=== PATIENT | female | born 1990 | race Hispanic/Latino ===

== ENCOUNTER 2019-06-27 22:33 | Emergency (ER) | payer SELFPAY ==
[2019-06-27 23:09] LABS: #Basophils 0.1 thou/uL (0.0-0.2); #Eosinphils 0.1 thou/uL (0.0-0.7); #Monocytes 0.8 thou/uL (0.11-0.59); #Neutrophils 5.7 thou/uL (1.40-6.50); %Basophils 0.8 % (0.0-1.0); %Eosinophils 1.2 % (0.0-10.0); %Lymphocytes 22.7 % (21.0-51.0); %Monocytes 9.2 % (0.0-10.0); %Neutrophils 66.2 % (42.0-75.0); Hemoglobin 12.4 g/dL (12.0-16.0); Mean Corpuscular HGB CONC 33.6 g/dL (32.0-36.0); Mean Corpuscular Hemoglobin 27.9 pg (27.0-31.0); Mean Corpuscular Volume 83.2 fL (78.0-98.0); Mean Platelet Volume 11.7 fL (7.4-10.4); Platelet Count 138 thou/uL (130-400); Red Blood Cell (RBC) Count 4.44 mill/uL (4.20-5.40); White Blood Cell (WBC) Count 8.7 thou/uL (4.8-10.8)
--- NOTE | 2019-06-28 00:15 | ULT ---
ULTRASOUND PELVIC ULTRASOUND TRANSVAGINAL DOPPLER DUPLEX: DATE: 06/27/2019 11:45 PM HISTORY: 29-year-old female with first trimester vaginal bleeding TECHNIQUE: Transabdominal transducer and endovaginal transducer used to visualize intrapelvic contents with yeboah scale, color-flow, and spectral analysis. FINDINGS: At the fundus of the uterus, there is a elongated, slightly misshapen intrauterine gestational sac. pole has slightly heterogeneous echogenicity, with crown-rump length of 2.5 cm, corresponding t o 9 weeks 2 days gestational age. heart rate 175 bpm Small amount of free fluid in the cul-de-sac. Blood flow demonstrated in both ovaries by Doppler. IMPRESSION: 1. Live first trimester intrauterine gestation estimated to be 9 weeks 2 days gestational age. 2. Gestational sac is slightly misshapen. 3. Consider follow-up.
[2019-06-28 00:33] LABS: Bacteria/HPF 1+ HPF (None Seen); Bilirubin Negative (Negative); Blood, Urine 2+ (Negative); Clarity Clear (Clear); Glucose, Urine (Dipstick) Normal (Negative); Leukocyte Negative Leu/uL (Negative); Nitrite Negative (Negative); Protein, Urine (Dipstick) Negative (Neg-Trace); RBC/HPF 0-3 HPF (0-3); Squamous Epithelial 0-3 HPF (0-3); Urobilinogen Normal mg/dL (Less than 2); WBC/HPF 0-3 HPF (0-3)
== END 2019-06-28 01:01 | disposition home or self-care (01) ==
LOC: ERS 22:33
DX: O20.9 Hemorrhage in early pregnancy, unspecified (principal); Z3A.09 9 weeks gestation of pregnancy
CPT/HCPCS: 36415; 76856; 81003; 81015; 84702; 85025; 86900; 86901

== ENCOUNTER → 2020-01-16 | Day surgery (SDC) | payer OTHER ==
[~2020-01-16] MED LIST: Azithromycin 500 MG VIAL ONE; Lactated Ringer's 1,000 ML IV SCH; Morphine 4 MG/ML VIAL IM SCH; Morphine 4 MG/ML VIAL SLOW IVP PRN; Promethazine HCl 12.5 MG in Sodium Chloride 0.9% 50 ML IVPB SCH; hydrALAZINE 20 MG/ML VIAL SLOW IVP PRN
[2020-01-16 01:35] VITALS: BMI 33.9
[2020-01-16 01:48] VITALS: BP 118/67
--- NOTE | 2020-01-16 02:19 | PDOC.FPROB ---
FMR OB H&P: HPI - History of Present Illness Chief Complaint: contractions History of Present Illness: Pt is a 29 yo @ 37.5 wga by LMP/confirmed with 8.5wk sono who presents with chief complaint of contractions. She states they started around midnight and are about 2 minutes apart. They are uncomfortable but not painful. She endorses good movement, no LOF/VB/VD. has been complicated by A1GDM and gestational thrombocytopenia. She is scheduled for a rLTCS on 01/25/20. 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 Denies hx STD Last pap showed ASCUS with high risk HPV - Surgical History Sx History: knee surgery previous LTCS - Social History Social History: denies tobacco, alcohol, drug use - Family History Family History: history of uterine cancer in multiple relatives as per patient report FMR OB H&P: Medications - Current Home Medications: Medication Instructions Recorded Confirmed Type Pnv No.95/Ferrous Fum/Folic AC 1 tab PO DAILY 01/16/20 01/16/20 History [ Caplet] Allergies/Adverse Reactions: Allergies Allergy/AdvReac Type Severity Reaction Status Date / Time No Known Allergies Allergy Verified 01/16/20 01:26 FMR OB H&P: ROS - Review of Systems General: denies: fever/chills, weight/appetite/sleep changes Eyes: denies: vision changes Cardiovascular: denies: chest pain, edema Gastrointestinal: denies: abdominal pain, nausea, vomiting Genitourinary (Female): reports: contractions. denies: dysuria, vaginal discharge, vaginal pain, vaginal bleeding, vaginal pressure Musculoskeletal: denies: pain Neurologic: denies: headache Breast: denies: skin changes Hematologic/Lymphatic: denies: prolonged or excessive bleeding FMR OB H&P: Vital Signs - Maternal Vital signs: Vital Signs - First Documented Pulse Resp BP 82 18 118/67 01/16/20 01:24 01/16/20 01:24 01/16/20 01:24 - Heart Tones Baseline: 140 Variability: moderate Acceleration: present Deceleration: absent Category: category 1 [place] contractions every: 3-5 FMR OB H&P: Physical Exam - Physical Exam General: NAD, awake, alert and oriented, other (resting comfortably through contractions) HEENT: normocephalic and atraumatic, EOMI Neck: supple Chest: non-tender to palpation Heart: RRR, normal S1/S2 General: CTAB, no respiratory distress Abdomen: soft, gravid Musculoskeletal: FROM in all four extremities Neurological: no clonus, no tremor, no focal deficit Skin: no rash, good tugor Lymphatic: no unusual bruising or bleeding Psychiatric: intact recent and remote memory, good judgement and insight, normal mood and affect - Pelvic Exam SVE: /high Membranes: intact FMR OB H&P: A/P Disposition: Pt is a 29 yo @ 37.5 wga by LMP/confirmed with 8.5wk sono who presents with chief complaint of contractions 1. Rule out labor -patient complains of contractions, although she is comfortable and talking through them -initial cervical check /high -continue monitoring: cat 1 strip 140bpm baseline with moderate variability and +accels. Contractions on toco q3-4 min -give 1L bous to try to help contractions subside -recheck cervix in 2 hours; if no change, plan to discharge home and follow up with scheduled visit tomorrow -If change is evident and contractions ensue, will reassess at that time and discuss need for rLTCS before scheduled one on 01/25/20 2. A1GDM -aware 3. Gestational thrombocytopenia -aware Discussion: Date/Time: 01/16/20 0208 This H&P was discussed with Dr. Hightower and Dr. Finn who agree with the above documentation and plan. Addendum - Attending - Attending Attestation Date/Time: 01/16/20 0717 I personally evaluated the patient and discussed the management with Dr. Brock I agree with the History, Examination, Assessment and Plan documented above with any addition or exceptions noted below - 29 yo @37.5 weeks presented c/o ctx since 1 AM. Denies LOF, VB. (+)FM. Initial exam 1/thick/high. Cat 1 FHTs. Given fluids and analgesia x 1 dose. No cervical change but continues to have painful ctx q2-3 min. Will give additional dose of morphine and recheck in 2-3 hours.
--- NOTE | 2020-01-16 07:33 | PDOC.BPN ---
- Brief Progress Note Pt is a 29 yo @ 37.5 wga by LMP/confirmed with 8.5wk sono who presents with chief complaint of contractions, scheduled for rLTCs on 01/25/2020. 1. Non-labor Contractions -patient complains of contractions, although she is comfortable and talking through them -cervical check /high @ 0200 and 0400 -continued monitoring: cat 1 strip 140bpm baseline with moderate variability and +accels. Contractions on toco q3-4 min -gave 1L bolus to try to help contractions subside, patient given 2mg morphine for pain relief -recheck cervix @ 0630 still /high, cat I strip -patient still 9/10 pain, will give 4mg IM morphine and 12.5 phenergine and plan to discharge in 1-2 hours with ED precautions 2. A1GDM -aware 3. Gestational thrombocytopenia -aware I have discussed this case with Dr. Finn and she agrees with the plan.
--- NOTE | 2020-01-16 10:20 | PDOC.BPN ---
- Brief Progress Note Patient no longer santosh, resting comfortably in bed. ED precautions were given. Patient has f/u at the clinic this week. Will discharge.
== END | disposition home or self-care (01) ==
LOC: L&D/OP 00:53
PROVIDERS: ATTEND Family Medicine
DX: O47.1 False labor at or after 37 completed weeks of gestation (principal); O24.410 Gestational diabetes mellitus in pregnancy, diet controlled; O99.112 Other diseases of the blood and blood-forming organs and certain disorders involving the immune mechanism complicating pregnancy, second trimester; D69.6 Thrombocytopenia, unspecified; O34.211 Maternal care for low transverse scar from previous cesarean delivery; Z3A.37 37 weeks gestation of pregnancy
CPT/HCPCS: 96360; 96361; 96372; 96375; 99283; J0456; J0690; J2270; J2550

== ENCOUNTER 2020-01-17 23:50 | Inpatient (IN) | payer MEDICAID, OTHER ==
[2020-01-18 00:19] VITALS: BMI 34.5
--- NOTE | 2020-01-18 00:41 | PDOC.FPROB ---
FMR OB H&P: HPI - History of Present Illness Chief Complaint: Contractions Indentification: 29yo 38.0 WGA by 8.5wk sono History of Present Illness: This is a 29yo at 38.0 WGA who is scheduled for a repeat C/s on 01/25. Her previous C/s was d/t failure to progress. She is presenting today for contractions. She was seen yesterday for the same but did not progress from 1cm dilated so she was sent home. She was seen in clinic on 01/16 but was still 1cm/thick/high, so she was sent home. Later in the evening, ctx started and were getting increasingly severe and more frequent. Per pt, she had ROM at 2230. ROM was confirmed by amnisure. Pt denies [place]A, vision changes, RUQ pain, LE edema, SOB, CP, vaginal bleeding, vaginal discharge aside from water breaking, dysuria, hematuria. Cervical check on arrival: 1/thick/high FHT cat 1 with baseline fluctuating from 130 to 150 with good variability Ctx occurring ~q2min Vitals: BP 111/54-62. HR 67-82 Primary Care Physician: Dr. Mehran Koenig FMR OB H&P: Current - Care : 2 Para: 1 Gestational age: 38.0 Due date: 01/31 Dating Criteria: 8.5wk sono Course/Complications: A2GDM, on Metformin since yesterday. Low iron, on Fe supplementation - OB Labs Blood type: O RH: positive Antibody Screen: negative HIV: negative RPR: negative HepBsAg: negative Rubella: immune Quad screen: unknown GBS: positive H&H: 12.7/37.4 Platelets: 157 FMR OB H&P: History - Past Medical History PMH: Denies A2GDM and iron deficiency during - OB History OB History: , ended in d/t failure to progress. 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 B/l knee surgeries for subluxation - Social History Social History: Denies tob/EtOH/drugs use - Family History Family History: Not obtained FMR OB H&P: Medications - Current Home Medications: Medication Instructions Recorded Confirmed Type Pnv No.95/Ferrous Fum/Folic AC 1 tab PO DAILY 01/16/20 01/16/20 History [ Caplet] Allergies/Adverse Reactions: Allergies Allergy/AdvReac Type Severity Reaction Status Date / Time No Known Allergies Allergy Verified 01/18/20 00:18 FMR OB H&P: ROS - Review of Systems Eyes: denies: vision changes, scotomas ENT: denies: sore throat Cardiovascular: denies: chest pain, edema Respiratory: denies: shortness of breath Genitourinary (Female): reports: vaginal discharge (ROM, no other discharge), contractions. denies: dysuria, hematuria, vaginal pain, vaginal bleeding Musculoskeletal: reports: decrease range of motion (Cannot fully extend b/l LE d/t risk of subluxation) Neurologic: denies: headache FMR OB H&P: Vital Signs - Maternal Vital signs: BP 111/54-62. HR 67-82. - Heart Tones Baseline: 140 (Ranging from 130-150) Variability: moderate Acceleration: absent Deceleration: absent Category: category 1 [place] contractions every: 2-3min FMR OB H&P: Physical Exam - Physical Exam General: awake, alert and oriented Deviation from normal: In acute distress d/t ctx HEENT: normocephalic and atraumatic, EOMI, grossly normal vision, grossly normal hearing Neck: supple, FROM Heart: RRR, normal S1/S2, no murmurs/rubs/gallops, no edema General: CTAB, no respiratory distress, good air movement, no retractions Abdomen: gravid Musculoskeletal: FROM in all four extremities Skin: no rash Lymphatic: no unusual bruising or bleeding Psychiatric: intact recent and remote memory, good judgement and insight, normal mood and affect - Pelvic Exam Vulva: normal hair distribution, no masses, no lesions SVE: 1/thick/high Cortes score: 4 Membranes: ROM at 2230, confirmed by amnisure Presentation: Cephalic FMR OB H&P: A/P Discussion: Date/Time: 01/18/20 0040 Labor check - Pt is a 29 at 38.0 WGA presenting for ctx with ROM at 2230 on 01/04 - FHT cat 1 - Ctx q2-3min - Vitals nml and stable - Scheduled for repeat on 01/25 - Plan to take her to GBS + - Inadequate Ppx - Will monitor mom and baby for full 48h A2GDM - Started on Metformin yesterday - ACHS glucose checks Gestational iron-deficiency - On Fe supplementation - H/H nml today ASCUS with HR-HPV - HPV 16 - Colpo planned This H&P was discussed with Dr. Finn and Dr. Luna who agree with the above documentation and plan. Addendum - Attending - Attending Attestation Date/Time: 01/18/20 8746 I personally evaluated the patient and discussed the management with Dr. Sunita Zafar I agree with the History, Examination, Assessment and Plan documented above with any addition or exceptions noted below - 29 yo @ 38 weeks presented c/o LOF and ctx. Denies VB, (+) FM. OBHx significant for GDM and prior C/S for FTP. Afebrile VSS SVE 1/thick/-3, Cat 1 FHTs. [place]- ctx q2min. Amnisure (+). A/P: 1) IUP @38 weeks with SROM in early labor and h/o prior C?S- Admit to L&D and plan to proceed with repeat .
[2020-01-18 00:48] LABS: Amnisure Test RUPTURE DETECTED (No Rupture)
[2020-01-18 00:49] LABS: Amnisure Internal Control QC ACCEPTABLE (ACCEPTABLE)
[2020-01-18] MEDS ORDERED: hydrALAZINE 20 MG/ML VIAL SLOW IVP PRN ×2 (01:40→07:55)
[2020-01-18] MEDS ORDERED: Ondansetron PF 4 MG/2 ML Vial IVP PRN ×3 (01:40→07:55)
[2020-01-18] MEDS ORDERED: Promethazine HCl 25 MG/ML VIAL IM PRN ×2 (01:40→04:24)
[2020-01-18] MEDS ORDERED: Azithromycin 500 MG in Sodium Chloride 0.9% 250 ML 250 ML IVPB SCH (01:45)
[2020-01-18] MEDS ORDERED: Bicitra 30 ML UDCUP PO SCH ×2 (01:45)
[2020-01-18] MEDS ORDERED: CEFAZOLIN 2 GM in Premix Bag 1 BAG IVPB SCH (01:45)
[2020-01-18 01:58] LABS: Hemoglobin 12.7 g/dL (12.0-16.0); Mean Corpuscular HGB CONC 33.8 g/dL (32.0-36.0); Mean Corpuscular Hemoglobin 29.2 pg (27.0-31.0); Mean Corpuscular Volume 86.2 fL (78.0-98.0); Mean Platelet Volume 11.7 fL (7.4-10.4); Platelet Count 157 thou/uL (130-400); RBC Distribution Width 12.8 % (11.5-14.5); Red Blood Cell (RBC) Count 4.35 mill/uL (4.20-5.40); White Blood Cell (WBC) Count 10.4 thou/uL (4.8-10.8)
[2020-01-18] MEDS ORDERED: PHENYLEPHRINE-NS 100 MCG/ML 10 ML SYRINGE ONE ×2 (02:04→03:23)
[2020-01-18] MEDS ORDERED: Oxytocin 10 UNITS/ML VIAL ONE ×2 (02:04→03:54)
[2020-01-18] MEDS ORDERED: Carboprost 250 MCG/ML AMP ONE (02:12)
[2020-01-18] MEDS ORDERED: Methylergonovine 0.2 MG/ML VIAL ONE (02:12)
[2020-01-18 02:41] LABS: HBSAg Index 0.09 S/CO (0-0.99); Hep B Surf Ag Non-Reactive S/CO (NonReactive)
[2020-01-18] MEDS ORDERED: ePHEDrine 50 MG/ML VIAL ONE (02:49)
[2020-01-18] MEDS ORDERED: Ondansetron PF 4 MG/2 ML Vial ONE (02:50)
[2020-01-18] MEDS ORDERED: Midazolam HCl 2 mg/2 ml Vial ONE ×2 (03:31→03:48)
[2020-01-18] MEDS ORDERED: Ketamine 50 MG/ML (10ML VIAL) ONE (03:49)
[2020-01-18] MEDS ORDERED: Ketorolac Tromethamine 30 MG/ML VIAL ONE (04:12)
[2020-01-18] MEDS ORDERED: Ondansetron HCl/PF 4 MG/2 ML Vial IVP PRN (04:24)
[2020-01-18] MEDS ORDERED: Meperidine HCl/PF 25 MG/ML VIAL SLOW IVP PRN (04:24)
[2020-01-18] MEDS ORDERED: Naloxone HCl 0.4 mg/ml Vial IVP PRN ×2 (04:24)
[2020-01-18] MEDS ORDERED: Naloxone HCl 0.4 mg/ml Vial IV PRN (04:24)
[2020-01-18] MEDS ORDERED: diphenhydrAMINE 50 MG/ML VIAL IVP PRN (04:24)
[2020-01-18] MEDS ORDERED: L&D-Morphine 4 MG/ML VIAL SLOW IVP PRN (04:24)
[2020-01-18] MEDS ORDERED: HYDROmorphone 2 MG/ML VIAL SLOW IVP PRN (04:24)
[2020-01-18] MEDS ORDERED: Promethazine HCl 25 MG SUPP PR PRN (04:24)
[2020-01-18] MEDS ORDERED: Communication Order-Pharmacy FS SCH (04:30)
--- NOTE | 2020-01-18 04:30 | PDOC.OPDEL ---
OB Operative/Delivery Note - Findings A Sex: female - 1 min: 8 - 5 min: 9 - Additional Findings/Plan Compilations/Other Findings: Date of Procedure: 01/18/2020 Resident Surgeon: Dr. Mehran Koenig Documentation Clerk Surgeon: Dr. Eddi Aguilera Attending Surgeon: Dr. Chanda Finn and Dr. Johnson Procedure: Repeat low transverse caesarean section Preoperative Diagnosis: 1)Term intrauterine 2)Previous 3)A2GDM 4)GBS + 5)SROM Postoperative Diagnosis: 1)same as above Anesthesia: spinal Indications: The patient is a 29 year old G2,P1 female at 38.0 weeks gestation who presents for a repeat scheduled . Procedure in Detail: After risks, benefits, and alternatives were explained to the patient, she gave informed consent. Pre-operative antibiotics included Cefazolin 2 gram IV and Azithro 500mg. The patient was taken to the operating room and spinal anesthesia was initiated. She was placed in the supine position with a left tilt and prepped and draped in usual sterile fashion. A Pfannenstiel incision was made with a scalpel and carried down to the level of the fascia which was sharply nicked. The fascial cut was extended bilaterally with Sanchez sissors. The inferior and superior edges of the cut fascial edges were elevated with Karina clamps and the underlying rectus muscles were sharply and bluntly dissected free. The recti were divided digitally and retracted manually. The peritoneum was entered bluntly and retracted manually. Bladder blade was placed. An adehsion was found present on the anterior uterine wall extending left laterally the to posterior abdominal wall that was mostly dissected free using barbie. A small bladder flap was created with Metzenbaum scissors above the level of the adhesion. A low transverse score was made with the scalpel and the uterus was entered in the midline with the scalpel. Very small amount of clear fluid was seen. The hysterotomy was extended manually in a cephalad caudad fashion. The was noted to be vertex and OT and was easily delivered by fundal pressure. Mouth and nares were bulb suctioned. Cord clamped and cut and grossly normal female was handed to waiting nurse. Cord blood was obtained. Placenta was manually extracted, found to be intact with 3 vessel cord and discarded. The uterus was externalized and the endometrium was curetted with a dry lap. The bladder blade was replaced and the hysterotomy was closed with a running locking #1 Monocryl suture. A small left inferior uterine extension was found and closed by a running non-locking #1 monocryl that was extended into an imbricating layer. Following this there was continued bleeding from the left margin of the hysterotomy with concern of uterine artery disruption. Dr. Johnson was asked to come in for a second opinion. He felt the uterine artery was not injured and the bleeding was related to retracted adhesions. After several figure of eight and suture ligation of small bleeding vessels followed by administration of flow seal to the area hemostasis was achieved. The uterus was internalized and the hysterotomy was again noted to be hemostatic. The fascia was closed with a running non-locking 0-Vicryl suture. The subcutaneous tissue was irrigated and there were no bleeders. Subcutaneous tissue was approximated with a few inverted interrupted vicryl sutures. The skin was approximated with donna and a pressure dressing was placed. All counts were correct. The patient tolerated the procedure well and was taken to the recovery room in stable condition. Estimated Blood Loss: 950 ml Complications: Uterine extension Specimens: Cord blood sent to lab for blood type, placenta to path Findings: Grossly normal female with Apgars of 8 and 9. Grossly normal placenta with 3 vessel cord discarded. Drains: Hill to gravity draining clear urine Addendum - Attending - Attending Attestation Date/Time: 01/18/20 0536 I was present, assisted and supervised the repeat LCT C/S for this 29 yo @38 weeks. Viable female infant in vertex presentation. Apgars 8/9. Small extension along left aspect of hysterotomy repaired. Several simple interrupted sutures placed for continued bleeding by Dr. Johnson followed by leticia-seal with good hemostasis attained. QBL 950mL. Mother and infant in stable condition. Residents: Arya/Courtney Aguilera
[2020-01-18 05:05] LABS: Syphilis Antibody Nonreactive (Nonreactive); Syphilis Antibody Index 0.03 S/CO (<1.00 Non-Reactive)
--- NOTE | 2020-01-18 06:04 | CON ---
DATE OF CONSULTATION: 01/18/2020 INTRAOPERATIVE CONSULTATION: REQUESTING PHYSICIAN: Chanda Finn MD DESCRIPTION: I was called to the operating room by Dr. Finn. This patient was found to be with ruptured membranes and at term with a previous . During the , it was seen that there was a persistent bleeding from a left uterine angle extension. I placed interrupted #1 chromic sutures with better hemostasis, although there was a small amount of residual venous ooze. FloSeal was then placed in the area and held with pressure for 4 minutes. Complete hemostasis was achieved using this technique. The uterus was replaced into the abdominal cavity and no further bleeding was seen. The case was then turned back to Dr. Finn and the residents for completion of the . Job ID: [id number]
[2020-01-18] MEDS ORDERED: Adacel (T-DAP) 0.5 ML SYRINGE IM ONE (07:55)
[2020-01-18] MEDS ORDERED: NS / Oxytocin 40 units/1000ml 1,000 ML IV SCH (07:55)
[2020-01-18] MEDS ORDERED: diphenhydrAMINE 25 MG CAP PO PRN (07:55)
[2020-01-18] MEDS ORDERED: Misoprostol 200 MCG TAB PR PRN (07:55)
[2020-01-18] MEDS ORDERED: Lanolin Ointment 7 GM TUBE TOP PRN (07:55)
[2020-01-18] MEDS ORDERED: HYDROcodone/Acetaminophen 5/325 mg Tablet PO PRN (07:55)
--- NOTE | 2020-01-18 08:08 | PDOC.BPN ---
- Brief Progress Note Checked on patient s/p csection. Reports mild pain/soreness at the incision site, and nausea, no bleeding or drainage. States she is urinating well, denies passing gas or BM. No fever/chills. Selected Entries 01/18/20 01/18/20 00:17 02:14 Pulse Rate 70 Blood Pressure 111/54 L [Semi-Fowlers] Respiratory 18 Rate Oxygen Delivery Room Air Method No increased work of breathing, incision site with bandage clean dry and intact, fundus firm, no focal deficits, no LE edema. Plan: Term Labor delivery via Csection TSGA F born via rLTCS @ 0310 on 01/18/2020 - incision site clean, dry and intact - pain controlled at this time - continue plan of care GBS + - Inadequate Ppx - Will monitor mom and baby for full 48h A2GDM - no medication use - ACHS glucose checks Gestational iron-deficiency - On Fe supplementation - H/H nml today ASCUS with HR-HPV - HPV 16 - Colpo planned
[2020-01-18] MEDS: Lactated Ringer's 1,000 ML IV SCH ×2 (08:30→15:21)
[2020-01-18] MEDS: Ketorolac Tromethamine 30 MG/ML VIAL IVP PRN ×2 (10:24→16:37)
[2020-01-18] MEDS: Prenatal Vitamin 1 TAB PO SCH (10:27)
[2020-01-18] MEDS: Ferrous Sulfate 325 MG TAB PO SCH ×2 (10:27→23:37)
[2020-01-18] MEDS: Docusate Calcium (SURFAK) 240 MG CAP PO SCH ×2 (10:28→21:33)
[2020-01-18] MEDS: Ibuprofen 800 MG TAB PO SCH ×2 (15:21→21:33)
[2020-01-19] MEDS: Lactated Ringer's 1,000 ML IV SCH ×2 (01:26→09:21)
[2020-01-19] MEDS: Ibuprofen 800 MG TAB PO SCH ×3 (05:27→21:01)
[2020-01-19 06:56] LABS: Hemoglobin 9.6 g/dL (12.0-16.0); Mean Corpuscular HGB CONC 33.2 g/dL (32.0-36.0); Mean Corpuscular Hemoglobin 29.2 pg (27.0-31.0); Mean Platelet Volume 11.2 fL (7.4-10.4); Platelet Count 117 thou/uL (130-400); RBC Distribution Width 12.8 % (11.5-14.5); White Blood Cell (WBC) Count 10.3 thou/uL (4.8-10.8)
--- NOTE | 2020-01-19 09:04 | PDOC.PP ---
Post Progress Note Post Day #: 1 Subjective: Pt feeling well this morning. Complains of only mild pain that is worse when she is moving around. No other complaints. PO intake tolerated: yes Flatus: yes Ambulation: yes Vital Signs (12 hours) Temp Pulse Resp BP Pulse Ox 01/19/20 08:10 98.4 F 72 20 92/50 L 97 01/19/20 05:20 97.9 F 72 16 103/50 L 01/19/20 00:50 98.4 F 80 16 104/51 L Weight Weight 77.564 kg - Physical Examination General: NAD Cardiovascular: no m/r/g, RRR Respiratory: clear to auscultation bilaterally Abdominal: + bowel sounds, no distention, appropriately TTP Skin: CS incision dry & intact, no rash Neurological: no gross focal deficits Psychiatric: A&Ox3 Result Diagrams: 01/19/20 06:39 Additional Labs: Post Labs Hep Bs Antigen Non-Reactive S/CO (NonReactive) 01/18/20 01:49 Blood Type O POSITIVE 01/18/20 01:49 - Assessment/Plan Term Labor delivery via Csection TSGA F born via rLTCS @ 0310 on 01/18/2020 - incision site clean, dry and intact - pain controlled at this time - only required hydrocodone x1 - continue plan of care GBS + - Inadequate Ppx - Will monitor mom and baby for full 48h A2GDM - no medication use - ACHS glucose checks Gestational iron-deficiency - On Fe supplementation - H/H nml today ASCUS with HR-HPV - HPV 16 - Colpo planned Plan: continue routine post care. pts sugars have now normalized in post period Addendum - Attending - Attending Attestation Date/Time: 01/19/20 1101 I personally evaluated the patient and discussed the management with Dr. Koenig I agree with the History, Examination, Assessment and Plan documented above with any addition or exceptions noted below. Iron for anemia. Honey out tomorrow. anticipate d/c tomorrow.
[2020-01-19] MEDS: Prenatal Vitamin 1 TAB PO SCH (09:20)
[2020-01-19] MEDS: HYDROcodone/Acetaminophen 5/325 mg Tablet PO PRN ×3 (09:20→21:13)
[2020-01-19] MEDS: Ferrous Sulfate 325 MG TAB PO SCH (09:21)
[2020-01-19] MEDS: Docusate Calcium (SURFAK) 240 MG CAP PO SCH ×2 (09:21→21:01)
[2020-01-19 12:48] LABS: SARS-CoV-2 MS2 Positive; SARS-CoV-2 N Gene Negative; SARS-CoV-2 S Gene Negative; SARS-CoV-2 by NAA Not Detected (NotDetected); SARS-CoV-2 orf1ab Negative
[2020-01-20] MEDS: Ibuprofen 800 MG TAB PO SCH (05:01)
--- NOTE | 2020-01-20 08:00 | PDOC.PP ---
Post Progress Note Post Day #: 2 Subjective: No complaints this morning. Doing very well. Pain controlled - mainly notices with movement. PO intake tolerated: yes Flatus: yes Ambulation: yes Vital Signs (12 hours) Temp Pulse Resp BP 01/19/20 23:20 98.3 F 83 16 88/50 L Weight Weight 77.564 kg - Physical Examination General: NAD Cardiovascular: RRR Respiratory: clear to auscultation bilaterally Abdominal: + bowel sounds, no distention, appropriately TTP Extremities: negative homans (B) Skin: CS incision dry & intact (remained intact and well approximated post staple removal), no rash Neurological: no gross focal deficits Psychiatric: A&Ox3 Result Diagrams: 01/19/20 06:39 Additional Labs: Post Labs Hep Bs Antigen Non-Reactive S/CO (NonReactive) 01/18/20 01:49 Blood Type O POSITIVE 01/18/20 01:49 - Assessment/Plan Term Labor delivery via Csection TSGA F born via rLTCS @ 0310 on 01/18/2020 - incision site clean, dry and intact - donna removed, steri strips applied - will send short pain rx GBS + - Inadequate Ppx - No signs of infection in mother or baby at 48hr A2GDM - no medication use - ACHS glucose checks - mainly runs high with pp dinner - continue glucose monitoring x2 week and will assess need for continued rx at follow up ASCUS with HR-HPV - HPV 16 - Colpo planned Plan: DC home today - f/u in 2 weeks Addendum - Attending - Attending Attestation Date/Time: 01/20/20 1040 I personally evaluated the patient and discussed the management with Dr. Koenig. I agree with the History, Examination, Assessment and Plan documented above with any addition or exceptions noted below. Pain controlled. D/C home today. Continue glucose checks for 2 wk. bring log to f/u visit. Jodi for pain sent through clinic EMR.
[2020-01-20 08:19] VITALS: BP 102/55; TEMP 97.6
[2020-01-20] MEDS: Ferrous Sulfate 325 MG TAB PO SCH ×2 (09:25→09:26)
[2020-01-20] MEDS: Prenatal Vitamin 1 TAB PO SCH (09:25)
[2020-01-20] MEDS: Docusate Calcium (SURFAK) 240 MG CAP PO SCH (09:25)
== END 2020-01-20 11:42 | disposition home or self-care (01) | DRG 788 ==
LOC: L&D/OP 23:50 → L&D 01-18 03:05 → 3SW 01-18 10:56
PROVIDERS: ADMIT Family Medicine; ATTEND Family Medicine
PROC: 10D00Z1 Extraction of Products of Conception, Low, Open Approach (ICD-10-PCS; principal; 2020-01-18)
PROC: 0UQ90ZZ Repair Uterus, Open Approach (ICD-10-PCS; 2020-01-18)
DX: O34.211 Maternal care for low transverse scar from previous cesarean delivery (principal); Z3A.38 38 weeks gestation of pregnancy; Z37.0 Single live birth; O99.824 Streptococcus B carrier state complicating childbirth; O24.425 Gestational diabetes mellitus in childbirth, controlled by oral hypoglycemic drugs; D50.9 Iron deficiency anemia, unspecified; O99.02 Anemia complicating childbirth; O71.81 Laceration of uterus, not elsewhere classified; Z20.828 Contact with and (suspected) exposure to other viral communicable diseases
CPT/HCPCS: 36415; 36416; 51702; 84112; 85027; 86780; 86850; 86900; 86901; 87340; 87635; 88307; 99285; J0456; J0690; J1885; J2210; J2250; J2270; J2405; J2550; J3490; J7050; U0003